=== PATIENT | female | born 1995 | race African-American/Black ===

== ENCOUNTER 2018-02-25 00:21 | Emergency (ER) | payer OTHER ==
[~2018-02-25] VITALS: Ht 162.6 cm; Wt 99.8 kg
[2018-02-25 00:40] VITALS: BP 136/81
[2018-02-25 02:02] LABS: Urine Pregnacy Test Negative (Negative)
[2018-02-25 02:03] LABS: Urine Amorphous Crystal FEW /hpf (None Seen); Urine Bacteria FEW /hpf (None Seen); Urine Blood Negative /uL (Negative); Urine Mucus FEW (None Seen); Urine Specific Gravity 1.015 (1.001-1.035); Urine WBC 3 /hpf (0 - 5)
[2018-02-25 02:18] LABS: Alcohol, Urine < 3.0 mg/dL (0-5); Amphetamine Screen, Urine NEGATIVE (NEGATIVE); Barbiturate Scree,Urine NEGATIVE (NEGATIVE); Benzodiazephine Screen, Urine NEGATIVE (NEGATIVE); Cannabinoid Screen, Urine NEGATIVE (NEGATIVE); Cocaine Screen, Urine NEGATIVE (NEGATIVE); Opiate Scree,Urine NEGATIVE (NEGATIVE); Phencyclidine Screen, Urine NEGATIVE (NEGATIVE)
== END 2018-02-25 02:12 | disposition left against medical advice (07) ==
LOC: ER 00:31
DX: R56.9 Unspecified convulsions (principal); Z53.21 Procedure and treatment not carried out due to patient leaving prior to being seen by health care provider
CPT/HCPCS: 80307; 81001; 81025

== ENCOUNTER 2021-06-13 00:41 | Emergency (ER) | payer OTHER ==
[~2021-06-13] VITALS: Ht 170.2 cm; Wt 99.8 kg
[2021-06-13 01:38] LABS: Basophils # (auto) 0.2 10 ^3/uL (0-0.2); Basophils % (auto) 1.6 % (0.0-2.0); Eosinophils # (auto) 0 10 ^3/uL (0-0.8); Hemoglobin 14.3 g/dL (12.2-16.2); Lymphocytes # (auto) 1.1 10 ^3/uL (0.4-5.4); Lymphocytes % (auto) 10.2 % (10.0-50.0); Mean Corpuscular Hemoglobin 28.3 pg (28.0-32.0); Mean Corpuscular Hgb Conc. 32.5 g/dL (32.0-36.0); Mean Corpuscular Volume 87.2 fL (80.0-100.0); Monocytes # (auto) 0.6 10 ^3/uL (0-1.3); Neutrophils # (auto) 8.9 10 ^3/uL (1.6-8.6); Neutrophils % (auto) 82.2 % (37.0-80.0); Nucleated Red Blood Cells % 0.3 %; Red Blood Cells 5.05 10^6/uL (4.0-5.20); Red Cell Distribution Width 13.7 % (11.8-14.3); White Blood Cell 10.8 10^3/uL (4.4-10.8)
[2021-06-13 01:55] LABS: Albumin 4.3 g/dL (3.4-5.0); Potassium 3.4 mmol/L (3.5-5.1)
[2021-06-13 01:57] LABS: Bilirubin, Total 0.3 mg/dL (0.2-1.0); Total Protein 8.7 g/dL (6.4-8.2)
[2021-06-13 11:01] LABS: Urine Bacteria FEW /hpf (None Seen); Urine Blood Negative /uL (Negative); Urine Mucus FEW (None Seen); Urine Specific Gravity 1.024 (1.001-1.035); Urine WBC 2 /hpf (0 - 5)
[2021-06-13 11:35] VITALS: BP 99/55
== END 2021-06-13 11:41 | disposition home or self-care (01) ==
LOC: EDBD 00:41 → EDUNIT# 00:41 → ER 00:43
DX: G40.909 Epilepsy, unspecified, not intractable, without status epilepticus (principal); E87.6 Hypokalemia; R62.50 Unspecified lack of expected normal physiological development in childhood
CPT/HCPCS: 36415; 70450; 80053; 81001; 81025; 85025; 96365; 99285; J1953; J7060

== ENCOUNTER 2022-01-16 23:07 | Inpatient (IN) | payer OTHER ==
[~2022-01-16] VITALS: Ht 165.1 cm; Wt 98.7 kg
[2022-01-16] MEDS ORDERED: ROCURONIUM 10MG/ML 10ML VIAL IV ONE ×2 (23:13→23:30)
[2022-01-16] MEDS ORDERED: ETOMIDATE (2MG/ML) 20ML VIAL IV ONE ×2 (23:14→23:30)
[2022-01-16 23:25] VITALS: BP 130/83
[2022-01-16 23:48] LABS: Basophils # (auto) 0 10 ^3/uL (0-0.2); Basophils % (auto) 0.3 % (0.0-2.0); Eosinophils # (auto) 0 10 ^3/uL (0-0.8); Eosinophils % (auto) 0.1 % (0.0-7.0); Hematocrit 40.2 % (36.0-46.0); Hemoglobin 12.8 g/dL (12.2-16.2); Lymphocytes # (auto) 1.1 10 ^3/uL (0.4-5.4); Lymphocytes % (auto) 7.9 % (10.0-50.0); Mean Corpuscular Hgb Conc. 31.9 g/dL (32.0-36.0); Mean Corpuscular Volume 87.6 fL (80.0-100.0); Monocytes # (auto) 0.7 10 ^3/uL (0-1.3); Monocytes % (auto) 5.2 % (0.0-12.0); Neutrophils # (auto) 11.7 10 ^3/uL (1.6-8.6); Neutrophils % (auto) 86.5 % (37.0-80.0); Red Blood Cells 4.59 10^6/uL (4.0-5.20); Red Cell Distribution Width 13.2 % (11.8-14.3); White Blood Cell 13.5 10^3/uL (4.4-10.8)
[2022-01-17] VITALS (85 sets, daily range): BP systolic 94–132; BP diastolic 40–72
[2022-01-17 00:03] LABS: Albumin 3.8 g/dL (3.4-5.0); Calcium 8.3 mg/dL (8.5-10.1); Potassium 3.3 mmol/L (3.5-5.1)
[2022-01-17 00:05] LABS: BUN/Creatinine Ratio 19.3; Bilirubin, Total 0.4 mg/dL (0.2-1.0); Total Protein 7.8 g/dL (6.4-8.2)
[2022-01-17 00:15] LABS: Salicylate < 1.7 mg/dL (2.8-20.0)
[2022-01-17] MEDS ORDERED: PROPOFOL 100 ML IV ONE (00:19)
[2022-01-17 00:22] LABS: Acetaminophen < 2.0 ug/mL (10-30)
[2022-01-17] MEDS: PROPOFOL 100 ML IV SCH (00:30)
[2022-01-17] MEDS ORDERED: fentaNYL Drip 2500mCg/250mlNS 250 ML IV ONE (00:40)
[2022-01-17] MEDS: fentaNYL Drip 2500mCg/250mlNS 250 ML IV SCH (00:45)
[2022-01-17] MEDS ORDERED: MIDAZOLAM DRIP 50 mg/50mL 50 ML IV ONE (01:04)
[2022-01-17] MEDS: MIDAZOLAM DRIP 50 mg/50mL 50 ML IV SCH ×6 (01:15→23:36)
[2022-01-17] MEDS ORDERED: MIDAZOLAM HCL 2MG/2ML 2ml VIAL (1mg/ml) IV ONE (01:30)
[2022-01-17 01:32] LABS: Urine Bacteria FEW /hpf (None Seen); Urine Blood Negative /uL (Negative); Urine Hyaline Cast FEW /lpf (0 - 2); Urine Mucus FEW (None Seen); Urine Specific Gravity 1.019 (1.001-1.035); Urine WBC 7 /hpf (0 - 5)
[2022-01-17 01:54] LABS: Amphetamine Screen, Urine NEGATIVE (NEGATIVE); Barbiturate Scree,Urine NEGATIVE (NEGATIVE); Benzodiazephine Screen, Urine NEGATIVE (NEGATIVE); Cannabinoid Screen, Urine NEGATIVE (NEGATIVE); Cocaine Screen, Urine NEGATIVE (NEGATIVE); Opiate Scree,Urine NEGATIVE (NEGATIVE); Phencyclidine Screen, Urine NEGATIVE (NEGATIVE)
[2022-01-17] MEDS ORDERED: NITROGLYCERIN 0.4 MG SL TAB SL PRN (04:15)
[2022-01-17] MEDS ORDERED: ONDANSETRON HCL 4 MG/2 ML VIAL IV PRN (04:15)
[2022-01-17] MEDS ORDERED: MORPHINE SULFATE INJ 2 MG/ml SYRG IV PRN (04:15)
[2022-01-17] MEDS ORDERED: cefTRIAXone 1GM/50ML D5W 50 ML IV ONE (04:15)
[2022-01-17] MEDS ORDERED: POTASSIUM CHL 20MEQ/100ML 100 ML IV ONE (04:15)
[2022-01-17] MEDS ORDERED: ACETAMINOPHEN 650 MG RECT SUPP PR PRN (04:15)
[2022-01-17 05:48] LABS: Basophils # (auto) 0 10 ^3/uL (0-0.2); Basophils % (auto) 0.3 % (0.0-2.0); Eosinophils # (auto) 0 10 ^3/uL (0-0.8); Eosinophils % (auto) 0.4 % (0.0-7.0); Hematocrit 37.2 % (36.0-46.0); Hemoglobin 11.9 g/dL (12.2-16.2); Lymphocytes % (auto) 16.8 % (10.0-50.0); Mean Corpuscular Hemoglobin 28.1 pg (28.0-32.0); Mean Corpuscular Volume 87.8 fL (80.0-100.0); Monocytes % (auto) 8.6 % (0.0-12.0); Neutrophils # (auto) 8.8 10 ^3/uL (1.6-8.6); Neutrophils % (auto) 73.9 % (37.0-80.0); Nucleated Red Blood Cells % 0.1 %; Red Blood Cells 4.23 10^6/uL (4.0-5.20); White Blood Cell 11.9 10^3/uL (4.4-10.8)
[2022-01-17 06:08] LABS: Albumin 3.3 g/dL (3.4-5.0); BUN/Creatinine Ratio 19.6; Potassium 3.3 mmol/L (3.5-5.1)
[2022-01-17 06:19] LABS: Bilirubin, Total 0.4 mg/dL (0.2-1.0); Total Protein 7.2 g/dL (6.4-8.2)
[2022-01-17] MEDS: SODIUM CHLOR 0.9% PF (SALINE LOCK) 10ML VIAL/SYR IV SCH ×3 (06:53→21:50)
[2022-01-17] MEDS: THIAMINE 100mg/ml INJ (200mg/2ml VIAL) IV SCH (09:46)
[2022-01-17] MEDS: FAMOTIDINE (10MG/ML) 2ML VL IV SCH ×2 (09:46→21:50)
[2022-01-17] MEDS: ENOXAPARIN SOD 40 MG/0.4 ML SYRINGE SC SCH (09:46)
[2022-01-17] MEDS: MULTIPLE VITAMIN TAB NG SCH (09:47)
[2022-01-17] MEDS: SODIUM CHLORIDE 0.9% 1,000 ML IV SCH ×2 (11:40→21:10)
[2022-01-17] MEDS: FOLIC ACID 1 MG in D5W 5% 50 ML INJ SCH (12:04)
[2022-01-17] MEDS: ACETAMINOPHEN 650 mg PER 20.3 mL UD PO PRN (23:44)
[2022-01-18] VITALS (108 sets, daily range): BP systolic 86–138; BP diastolic 33–73
[2022-01-18] MEDS: PROPOFOL 100 ML IV SCH (00:30)
[2022-01-18] MEDS: fentaNYL Drip 2500mCg/250mlNS 250 ML IV SCH ×2 (02:07→19:47)
[2022-01-18 03:59] LABS: Basophils # (auto) 0 10 ^3/uL (0-0.2); Basophils % (auto) 0.4 % (0.0-2.0); Eosinophils # (auto) 0.2 10 ^3/uL (0-0.8); Eosinophils % (auto) 1.8 % (0.0-7.0); Hematocrit 37.3 % (36.0-46.0); Hemoglobin 12.1 g/dL (12.2-16.2); Lymphocytes # (auto) 1.8 10 ^3/uL (0.4-5.4); Lymphocytes % (auto) 15.8 % (10.0-50.0); Mean Corpuscular Hemoglobin 28.9 pg (28.0-32.0); Mean Corpuscular Hgb Conc. 32.3 g/dL (32.0-36.0); Mean Corpuscular Volume 89.5 fL (80.0-100.0); Monocytes % (auto) 8.5 % (0.0-12.0); Neutrophils # (auto) 8.3 10 ^3/uL (1.6-8.6); Neutrophils % (auto) 73.5 % (37.0-80.0); Red Blood Cells 4.17 10^6/uL (4.0-5.20); Red Cell Distribution Width 13.4 % (11.8-14.3); White Blood Cell 11.3 10^3/uL (4.4-10.8)
[2022-01-18 04:15] LABS: Albumin 3.1 g/dL (3.4-5.0); BUN/Creatinine Ratio 24.6; Calcium 8.4 mg/dL (8.5-10.1); Potassium 3.4 mmol/L (3.5-5.1)
[2022-01-18 04:18] LABS: Total Protein 6.8 g/dL (6.4-8.2)
[2022-01-18] MEDS: MIDAZOLAM DRIP 50 mg/50mL 50 ML IV SCH ×5 (04:45→21:32)
[2022-01-18] MEDS: SODIUM CHLOR 0.9% PF (SALINE LOCK) 10ML VIAL/SYR IV SCH ×3 (06:08→22:44)
[2022-01-18] MEDS: SODIUM CHLORIDE 0.9% 1,000 ML IV SCH (08:45)
[2022-01-18] MEDS ORDERED: cefTRIAXone 1GM/50ML D5W 50 ML IV SCH (09:00)
[2022-01-18] MEDS: ENOXAPARIN SOD 40 MG/0.4 ML SYRINGE SC SCH (10:18)
[2022-01-18] MEDS: THIAMINE 100mg/ml INJ (200mg/2ml VIAL) IV SCH (10:18)
[2022-01-18] MEDS: MULTIPLE VITAMIN TAB NG SCH (10:18)
[2022-01-18] MEDS: FAMOTIDINE (10MG/ML) 2ML VL IV SCH ×2 (10:18→22:46)
[2022-01-18] MEDS: FOLIC ACID 1 MG in D5W 5% 50 ML INJ SCH (10:18)
[2022-01-18] MEDS: ACCU-CHEK COMFORT CURVE STRIP VI SCH ×3 (11:25→23:28)
[2022-01-18] MEDS: InsuLIN REG 1unit/0.01ml Soln (100units/ml) SC SCH ×3 (11:25→23:28)
[2022-01-18] MEDS ORDERED: PANTOPRAZOLE 40 MG/10 ML VIAL INJ IV ONE (11:30)
[2022-01-18] MEDS ORDERED: FUROSEMIDE 40 MG/4 ML VIAL IV ONE (11:30)
[2022-01-18] MEDS ORDERED: Jevity 1.2 Cal/Fiber 1 Liter GT SCH (11:30)
[2022-01-18] MEDS: D5W/SOD CHL 0.45% 1,000 ML IV SCH ×2 (11:39→19:30)
[2022-01-18] MEDS ORDERED: DEXTROSE (50%) 50ML SYRG IV PRN (12:30)
[2022-01-18] MEDS: ACETAMINOPHEN 650 mg PER 20.3 mL UD PO PRN ×2 (13:20→23:26)
[2022-01-18] MEDS: PIPERACILLIN-TAZO 4.5GM 100 ML IV SCH ×2 (14:15→22:46)
[2022-01-18] MEDS ORDERED: ENOXAPARIN SOD 40 MG/0.4 ML SYRINGE SC ONE (22:00)
[2022-01-19] VITALS (103 sets, daily range): BP systolic 87–122; BP diastolic 39–79
[2022-01-19] MEDS: PROPOFOL 100 ML IV SCH (00:30)
[2022-01-19] MEDS: MIDAZOLAM DRIP 50 mg/50mL 50 ML IV SCH ×4 (01:45→22:45)
[2022-01-19] MEDS: D5W/SOD CHL 0.45% 1,000 ML IV SCH ×3 (03:29→19:30)
[2022-01-19 04:27] LABS: Potassium 3.8 mmol/L (3.5-5.1)
[2022-01-19 04:32] LABS: BUN/Creatinine Ratio 17.2; Calcium 8.8 mg/dL (8.5-10.1)
[2022-01-19] MEDS: InsuLIN REG 1unit/0.01ml Soln (100units/ml) SC SCH ×3 (05:30→17:30)
[2022-01-19] MEDS: ACCU-CHEK COMFORT CURVE STRIP VI SCH ×3 (05:31→17:26)
[2022-01-19] MEDS: PIPERACILLIN-TAZO 4.5GM 100 ML IV SCH ×3 (05:31→22:00)
[2022-01-19] MEDS: SODIUM CHLOR 0.9% PF (SALINE LOCK) 10ML VIAL/SYR IV SCH ×3 (05:31→22:00)
[2022-01-19] MEDS: fentaNYL Drip 2500mCg/250mlNS 250 ML IV SCH ×2 (09:03→20:00)
[2022-01-19] MEDS: FAMOTIDINE (10MG/ML) 2ML VL IV SCH ×2 (09:47→22:00)
[2022-01-19] MEDS: PANTOPRAZOLE 40 MG/10 ML VIAL INJ IV SCH (09:47)
[2022-01-19] MEDS: THIAMINE 100mg/ml INJ (200mg/2ml VIAL) IV SCH (09:47)
[2022-01-19] MEDS: MULTIPLE VITAMIN TAB NG SCH (09:48)
[2022-01-19] MEDS: ENOXAPARIN SOD 40 MG/0.4 ML SYRINGE SC SCH (09:48)
[2022-01-19] MEDS: FOLIC ACID 1 MG in D5W 5% 50 ML INJ SCH (09:50)
[2022-01-19] MEDS: ACETAMINOPHEN 650 mg PER 20.3 mL UD PO PRN (17:38)
[2022-01-20] VITALS (96 sets, daily range): BP systolic 86–150; BP diastolic 40–108
[2022-01-20] MEDS: MIDAZOLAM DRIP 50 mg/50mL 50 ML IV SCH ×2 (02:00→06:27)
[2022-01-20] MEDS: D5W/SOD CHL 0.45% 1,000 ML IV SCH ×3 (03:30→19:30)
[2022-01-20 05:08] LABS: BUN/Creatinine Ratio 7.1; Calcium 8.4 mg/dL (8.5-10.1); Potassium 3.6 mmol/L (3.5-5.1)
[2022-01-20 05:09] LABS: Basophils # (auto) 0.1 10 ^3/uL (0-0.2); Eosinophils # (auto) 0.2 10 ^3/uL (0-0.8); Eosinophils % (auto) 2.2 % (0.0-7.0); Hematocrit 35.1 % (36.0-46.0); Hemoglobin 11.3 g/dL (12.2-16.2); Lymphocytes # (auto) 1.9 10 ^3/uL (0.4-5.4); Lymphocytes % (auto) 22.4 % (10.0-50.0); Mean Corpuscular Hemoglobin 27.9 pg (28.0-32.0); Mean Corpuscular Hgb Conc. 32.3 g/dL (32.0-36.0); Mean Corpuscular Volume 86.3 fL (80.0-100.0); Monocytes # (auto) 0.8 10 ^3/uL (0-1.3); Monocytes % (auto) 10.1 % (0.0-12.0); Neutrophils # (auto) 5.3 10 ^3/uL (1.6-8.6); Neutrophils % (auto) 64.3 % (37.0-80.0); Nucleated Red Blood Cells % 0.1 %; Red Blood Cells 4.07 10^6/uL (4.0-5.20); Red Cell Distribution Width 13.2 % (11.8-14.3); White Blood Cell 8.3 10^3/uL (4.4-10.8)
[2022-01-20] MEDS: InsuLIN REG 1unit/0.01ml Soln (100units/ml) SC SCH ×4 (06:00→17:35)
[2022-01-20] MEDS: SODIUM CHLOR 0.9% PF (SALINE LOCK) 10ML VIAL/SYR IV SCH ×3 (06:07→22:00)
[2022-01-20] MEDS: ACCU-CHEK COMFORT CURVE STRIP VI SCH ×4 (06:07→17:35)
[2022-01-20] MEDS: PIPERACILLIN-TAZO 4.5GM 100 ML IV SCH ×3 (06:11→22:42)
[2022-01-20] MEDS: PROPOFOL 100 ML IV SCH (09:09)
[2022-01-20] MEDS: PANTOPRAZOLE 40 MG/10 ML VIAL INJ IV SCH (09:38)
[2022-01-20] MEDS: FAMOTIDINE (10MG/ML) 2ML VL IV SCH ×2 (09:38→22:00)
[2022-01-20] MEDS: ENOXAPARIN SOD 40 MG/0.4 ML SYRINGE SC SCH (09:39)
[2022-01-20] MEDS: THIAMINE 100mg/ml INJ (200mg/2ml VIAL) IV SCH (09:39)
[2022-01-20] MEDS: MULTIPLE VITAMIN TAB NG SCH (09:39)
[2022-01-20] MEDS: FOLIC ACID 1 MG in D5W 5% 50 ML INJ SCH (09:40)
[2022-01-20] MEDS ORDERED: ACETAMINOPHEN 650 MG RECT SUPP PR PRN (21:45)
[2022-01-20 22:45] LABS: Basophils # (auto) 0 10 ^3/uL (0-0.2); Basophils % (auto) 0.3 % (0.0-2.0); Eosinophils # (auto) 0 10 ^3/uL (0-0.8); Eosinophils % (auto) 0.4 % (0.0-7.0); Hemoglobin 12.4 g/dL (12.2-16.2); Lymphocytes # (auto) 0.6 10 ^3/uL (0.4-5.4); Mean Corpuscular Hemoglobin 28.3 pg (28.0-32.0); Mean Corpuscular Hgb Conc. 32.5 g/dL (32.0-36.0); Mean Corpuscular Volume 87.1 fL (80.0-100.0); Monocytes # (auto) 0.5 10 ^3/uL (0-1.3); Monocytes % (auto) 5.2 % (0.0-12.0); Neutrophils # (auto) 8.8 10 ^3/uL (1.6-8.6); Neutrophils % (auto) 88.1 % (37.0-80.0); Nucleated Red Blood Cells % 0.1 %; Red Blood Cells 4.36 10^6/uL (4.0-5.20); Red Cell Distribution Width 13.1 % (11.8-14.3)
[2022-01-20 23:08] LABS: Calcium 8.6 mg/dL (8.5-10.1); Potassium 3.5 mmol/L (3.5-5.1)
[2022-01-20 23:12] LABS: BUN/Creatinine Ratio 3.9
[2022-01-21] VITALS (43 sets, daily range): BP systolic 99–140; BP diastolic 59–96
[2022-01-21] MEDS: ACCU-CHEK COMFORT CURVE STRIP VI SCH ×4 (00:20→18:48)
[2022-01-21] MEDS: PROPOFOL 100 ML IV SCH (00:30)
[2022-01-21] MEDS: fentaNYL Drip 2500mCg/250mlNS 250 ML IV SCH (00:45)
[2022-01-21] MEDS: D5W/SOD CHL 0.45% 1,000 ML IV SCH ×2 (05:08→14:30)
[2022-01-21] MEDS: InsuLIN REG 1unit/0.01ml Soln (100units/ml) SC SCH ×4 (06:00→18:00)
[2022-01-21] MEDS: PIPERACILLIN-TAZO 4.5GM 100 ML IV SCH ×3 (06:00→22:03)
[2022-01-21] MEDS: SODIUM CHLOR 0.9% PF (SALINE LOCK) 10ML VIAL/SYR IV SCH ×3 (06:42→22:10)
[2022-01-21] MEDS: MULTIPLE VITAMIN TAB NG SCH (10:00)
[2022-01-21] MEDS: PANTOPRAZOLE 40 MG/10 ML VIAL INJ IV SCH (10:41)
[2022-01-21] MEDS: FAMOTIDINE (10MG/ML) 2ML VL IV SCH ×2 (10:41→22:05)
[2022-01-21] MEDS: ENOXAPARIN SOD 40 MG/0.4 ML SYRINGE SC SCH (10:42)
[2022-01-21] MEDS: THIAMINE 100mg/ml INJ (200mg/2ml VIAL) IV SCH (10:42)
[2022-01-21] MEDS: FOLIC ACID 1 MG in D5W 5% 50 ML INJ SCH (10:43)
[2022-01-21] MEDS ORDERED: MIDAZOLAM HCL 2MG/2ML 2ml VIAL (1mg/ml) IV PRN (22:30)
[2022-01-22] MEDS: ACCU-CHEK COMFORT CURVE STRIP VI SCH ×3 (01:44→13:14)
[2022-01-22] MEDS: D5W/SOD CHL 0.45% 1,000 ML IV SCH ×3 (01:44→13:11)
[2022-01-22] MEDS: InsuLIN REG 1unit/0.01ml Soln (100units/ml) SC SCH ×3 (06:00→12:00)
[2022-01-22] MEDS: SODIUM CHLOR 0.9% PF (SALINE LOCK) 10ML VIAL/SYR IV SCH ×2 (06:14→13:15)
[2022-01-22] MEDS: PIPERACILLIN-TAZO 4.5GM 100 ML IV SCH ×2 (06:15→13:35)
[2022-01-22 06:28] LABS: Basophils # (auto) 0 10 ^3/uL (0-0.2); Basophils % (auto) 0.3 % (0.0-2.0); Eosinophils # (auto) 0.1 10 ^3/uL (0-0.8); Hematocrit 36.1 % (36.0-46.0); Hemoglobin 11.7 g/dL (12.2-16.2); Lymphocytes # (auto) 1.2 10 ^3/uL (0.4-5.4); Lymphocytes % (auto) 11.5 % (10.0-50.0); Mean Corpuscular Hemoglobin 28.2 pg (28.0-32.0); Mean Corpuscular Hgb Conc. 32.4 g/dL (32.0-36.0); Mean Corpuscular Volume 87.3 fL (80.0-100.0); Monocytes # (auto) 0.9 10 ^3/uL (0-1.3); Monocytes % (auto) 8.8 % (0.0-12.0); Neutrophils % (auto) 78.4 % (37.0-80.0); Red Blood Cells 4.14 10^6/uL (4.0-5.20); Red Cell Distribution Width 12.7 % (11.8-14.3); White Blood Cell 10.2 10^3/uL (4.4-10.8)
[2022-01-22 06:48] LABS: Anion Gap 6 (5-15); BUN/Creatinine Ratio 2.6; Blood Urea Nitrogen 1 mg/dL (7-18); Calcium 8.5 mg/dL (8.5-10.1); Carbon Dioxide 27 mmol/L (21-32); Chloride 106 mmol/L (98-107); GFR African American 258 mL/min; GFR Non-African American 213 mL/min; Glucose 126 mg/dL (74-106); Potassium 3.2 mmol/L (3.5-5.1); Sodium 139 mmol/L (136-145)
[2022-01-22 09:02] VITALS: BP 112/66
[2022-01-22] MEDS ORDERED: LEVO750T64 PO (10:11)
[2022-01-22] MEDS: PANTOPRAZOLE 40 MG/10 ML VIAL INJ IV SCH (10:31)
[2022-01-22] MEDS: FAMOTIDINE (10MG/ML) 2ML VL IV SCH (10:31)
[2022-01-22] MEDS: ENOXAPARIN SOD 40 MG/0.4 ML SYRINGE SC SCH (10:32)
[2022-01-22] MEDS: THIAMINE 100mg/ml INJ (200mg/2ml VIAL) IV SCH (10:32)
[2022-01-22] MEDS: MULTIPLE VITAMIN TAB NG SCH (10:32)
[2022-01-22] MEDS: FOLIC ACID 1 MG in D5W 5% 50 ML INJ SCH (10:58)
[2022-01-22 13:06] VITALS: BP 129/73
[2022-01-22] MEDS ORDERED: POTASSIUM EFFERVESENT TAB 25 MEQ GT ONE ×2 (13:30→13:45)
[2022-01-22 14:27] VITALS: BP 121/44
== END 2022-01-22 15:30 | DRG 133 ==
LOC: ER 23:07 → EDBD 23:07 → ICU CENTRL 01-17 04:02 → EDUNIT# 01-17 04:02 → ICU WEST 01-17 06:38 → TELE-EAST 01-21 23:27
PROVIDERS: ADMIT Nurse Practitioner Family; ATTEND Internal Medicine Pulmonary Disease
PROC: 5A1945Z Respiratory Ventilation, 24-96 Consecutive Hours (ICD-10-PCS; principal; 2022-01-17)
PROC: 0BH17EZ Insertion of Endotracheal Airway into Trachea, Via Natural or Artificial Opening (ICD-10-PCS; 2022-01-17)
PROC: 05HD33Z Insertion of Infusion Device into Right Cephalic Vein, Percutaneous Approach (ICD-10-PCS; 2022-01-20)
PROC: B54MZZA Ultrasonography of Right Upper Extremity Veins, Guidance (ICD-10-PCS; 2022-01-20)
DX: J96.01 Acute respiratory failure with hypoxia (principal); G92.8 Other toxic encephalopathy; D72.829 Elevated white blood cell count, unspecified; E87.6 Hypokalemia; F32.A Depression, unspecified; F79 Unspecified intellectual disabilities; E16.2 Hypoglycemia, unspecified; G40.909 Epilepsy, unspecified, not intractable, without status epilepticus; R50.9 Fever, unspecified; Z20.822 Contact with and (suspected) exposure to COVID-19; F10.10 Alcohol abuse, uncomplicated; Z82.49 Family history of ischemic heart disease and other diseases of the circulatory system; Z83.3 Family history of diabetes mellitus
CPT/HCPCS: 31500; 36415; 36600; 70450; 71045; 72125; 80048; 80053; 80307; 80320; 80329; 81001; 81025; 82140; 82805; 82962; 83036; 83605; 84702; 85025; 87040; 87070; 87081; 87086; 87205; 92610; 93005; 94003; 94640; 95819; 96365; 96372; 99291; A4565; C9113; G0378; J0696; J2250; J2543; J2704; J3480; J3490; J7060

== ENCOUNTER 2022-07-31 23:49 | Emergency (ER) | payer OTHER ==
[~2022-07-31] VITALS: Ht 167.6 cm; Wt 93.6 kg
[~2022-07-31 23:49] MED LIST: LEVO750T64 PO
[2022-08-01] MEDS ORDERED: ONDANSETRON HCL 4 MG/2 ML VIAL IV ONE (00:45)
[2022-08-01] MEDS ORDERED: MORPHINE SULFATE 4 MG/ML SYR/VIAL IV ONE (00:45)
[2022-08-01 00:49] LABS: Basophils # (auto) 0.1 10 ^3/uL (0-0.2); Basophils % (auto) 0.6 % (0.0-2.0); Eosinophils # (auto) 0.1 10 ^3/uL (0-0.8); Eosinophils % (auto) 0.5 % (0.0-7.0); Hematocrit 44.6 % (36.0-46.0); Hemoglobin 14.9 g/dL (12.2-16.2); Lymphocytes # (auto) 2.8 10 ^3/uL (0.4-5.4); Lymphocytes % (auto) 25.6 % (10.0-50.0); Mean Corpuscular Hemoglobin 29.1 pg (28.0-32.0); Mean Corpuscular Hgb Conc. 33.5 g/dL (32.0-36.0); Mean Corpuscular Volume 86.8 fL (80.0-100.0); Monocytes % (auto) 9.4 % (0.0-12.0); Neutrophils # (auto) 6.9 10 ^3/uL (1.6-8.6); Neutrophils % (auto) 63.9 % (37.0-80.0); Nucleated Red Blood Cells % 0.1 %; Red Blood Cells 5.14 10^6/uL (4.0-5.20); Red Cell Distribution Width 13.4 % (11.8-14.3); White Blood Cell 10.8 10^3/uL (4.4-10.8)
[2022-08-01 00:57] LABS: Albumin 4.3 g/dL (3.4-5.0); BUN/Creatinine Ratio 20.9; Calcium 9.5 mg/dL (8.5-10.1); Magnesium 2.2 mg/dL (1.6-2.6)
[2022-08-01 01:00] LABS: Bilirubin, Total 0.5 mg/dL (0.2-1.0); Total Protein 8.8 g/dL (6.4-8.2)
[2022-08-01 01:11] LABS: Potassium 2.9 mmol/L (3.5-5.1)
[2022-08-01 01:15] LABS: Urine Bacteria NONE SEEN /hpf (None Seen); Urine Blood 2+ /uL (Negative); Urine Mucus FEW (None Seen); Urine Specific Gravity 1.021 (1.001-1.035); Urine WBC 5 /hpf (0 - 5)
[2022-08-01] MEDS ORDERED: POTASSIUM EFFERVESENT TAB 25 MEQ PO ONE ×2 (01:15)
[2022-08-01 07:23] VITALS: BP 151/61
[2022-08-01] MEDS ORDERED: CALC100023 PO (18:35)
[2022-08-01] MEDS ORDERED: OMEP-335 PO (18:35)
== END 2022-08-01 07:29 | disposition home or self-care (01) ==
LOC: ER 23:49
DX: R07.89 Other chest pain (principal); M94.0 Chondrocostal junction syndrome [Tietze]; Z79.2 Long term (current) use of antibiotics
CPT/HCPCS: 36415; 71045; 80053; 81001; 83735; 84484; 85025; 93005; 96374; 96375; 99285; J2270; J2405

== ENCOUNTER 2022-08-01 16:22 | Emergency (ER) | payer OTHER ==
[2022-08-01] MEDS ORDERED: ALPRAZolam 0.5 MG TAB PO ONE (16:30)
[2022-08-01] MEDS ORDERED: MAALOX PLUS or MAALOX 30 ML PO ONE (16:30)
[2022-08-01] MEDS ORDERED: CALC100023 PO (18:35)
[2022-08-01] MEDS ORDERED: OMEP-335 PO (18:35)
[2022-08-01 18:45] VITALS: BP 152/81
== END 2022-08-01 18:46 | disposition home or self-care (01) ==
LOC: ER 16:22
DX: K21.9 Gastro-esophageal reflux disease without esophagitis (principal); Z79.2 Long term (current) use of antibiotics
CPT/HCPCS: 74176